=== PATIENT | female | born 1960 | race Caucasian/White ===

== ENCOUNTER 2017-08-14 17:52 | Emergency (ER) | payer MEDICARE, OTHER ==
[2017-08-14] MEDS ORDERED: RINGERS SOLUTION,LACTATED 1,000 ML IV ONE (19:08)
[2017-08-14] MEDS ORDERED: ONDANSETRON HCL INJ/PF 4 MG/2 ML SDV IV ONE (19:09)
[2017-08-14] MEDS ORDERED: HYDROMORPHONE HCL INJ/PF 2 MG/ML AMPULE IV ONE (19:09)
[2017-08-14] MEDS ORDERED: DIPHENHYDRAMINE HCL 50 MG/ML VIAL IV ONE (19:10)
[2017-08-14] MEDS ORDERED: HALOPERIDOL LACTATE INJ 5 MG/1 ML VIAL IV ONE ×2 (19:10→19:37)
--- NOTE | 2017-08-14 19:13 | ER Document Report ---
ED Medical Screen (RME) - General Chief Complaint: Abdominal Pain Stated Complaint: ABDOMINAL PAIN Time Seen by Provider: 08/14/17 19:08 Notes: Patient says that she suffers from cyclic vomiting syndrome, diagnosed in 2002, which usually ends up in the emergency department receiving IV fluids and medications. Her last episode was in December of this year. Patient lives in [place], [place], and is visiting here. She says that she had onset of her nausea and vomiting and abdominal pain about a couple of hours ago. She is vomited about 3 times. Has had a little bit of diarrhea as well. No fevers. Patient says that when she gets these episodes, they are treated with IV Phenergan, Dilaudid 4 mg, and IV Thorazine. I advised the family that I no longer give IV Phenergan and Thorazine is not likely nor his 4 mg of Dilaudid. I have ordered an IV with 2 mg of Dilaudid and some fluids and Zofran and Haldol as a substitute for Thorazine. TRAVEL OUTSIDE OF THE [place] IN LAST 30 DAYS: No - Related Data Allergies/Adverse Reactions: acetaminophen [From Lortab] Allergy (Verified 08/14/17 17:59) celecoxib [From Celebrex] Allergy (Verified 08/14/17 17:59) hydrocodone [From Lortab] Allergy (Verified 08/14/17 17:59) Past Medical History - Social History Chew tobacco use (# tins/day): No Frequency of alcohol use: None Drug Abuse: None Renal/ Medical History: Denies: Hx Peritoneal Dialysis Physical Exam - Vital signs Vitals: Temp Pulse Resp BP Pulse Ox 97.9 F 73 20 163/89 H 94 08/14/17 18:00 08/14/17 18:00 08/14/17 18:00 08/14/17 18:00 08/14/17 18:00 Course - Vital Signs Vital signs: Temp Pulse Resp BP Pulse Ox 97.9 F 73 20 163/89 H 94 08/14/17 18:00 08/14/17 18:00 08/14/17 18:00 08/14/17 18:00 08/14/17 18:00
[2017-08-14 20:19] LABS: ABSOLUTE EOSINOPHILS # (AUTO) 0.1 10^3/uL (0.0-0.6); ABSOLUTE LYMPHOCYTES (AUTO) 1.6 10^3/uL (0.5-4.7); ABSOLUTE MONOCYTES (AUTO) 0.5 10^3/uL (0.1-1.4); ABSOLUTE NEUT (AUTO) 5.7 10^3/uL (1.7-8.2); BASOPHILS % (AUTO) 0.4 % (0-2); EOSINOPHILS % (AUTO) 0.9 % (0-6); HEMATOCRIT 36.6 % (36.0-47.0); HGB HCT DIFFERENCE -0.6; LYMPHOCYTES % (AUTO) 20.2 % (13-45); MEAN CORPUSCULAR HEMOGLOBIN 27.3 pg (27.0-33.4); MEAN CORPUSCULAR HGB CONC 32.7 g/dL (32.0-36.0); MEAN CORPUSCULAR VOLUME 84 fl (80-97); MONOCYTES % (AUTO) 6.1 % (3-13); RED BLOOD COUNT 4.38 10^6/uL (3.72-5.28); SEGMENTED NEUTROPHILS % (AUTO) 72.4 % (42-78); WHITE BLOOD COUNT 7.9 10^3/uL (4.0-10.5)
[2017-08-14 20:38] LABS: ALANINE AMINOTRANSFERASE 29 U/L (9-52); ALBUMIN 4.1 g/dL (3.5-5.0); ALKALINE PHOSPHATASE 80 U/L (38-126); ANION GAP 11 (5-19); ASPARTATE AMINO TRANSFERASE 31 U/L (14-36); BILIRUBIN,DIRECT 0.3 mg/dL (0.0-0.4); BILIRUBIN,TOTAL 0.4 mg/dL (0.2-1.3); BLOOD UREA NITROGEN 8 mg/dL (7-20); CARBON DIOXIDE 30 mmol/L (22-30); CHLORIDE 100 mmol/L (98-107); CREATININE RESULT 1.24 mg/dL (0.52-1.25); GLUCOSE 122 mg/dL (75-110); POTASSIUM 4.1 mmol/L (3.6-5.0); SODIUM 140.5 mmol/L (137-145); TOTAL PROTEIN 6.5 g/dL (6.3-8.2)
[2017-08-14] MEDS ORDERED: METOCLOPRAMIDE HCL INJ/PF 10 MG/2 ML SDV IV ONE (20:52)
[2017-08-14] MEDS ORDERED: PROMETHAZINE HCL INJ 25 MG/1 ML VIAL IV ONE (21:13)
[2017-08-14] MEDS ORDERED: PROMETHAZINE HCL INJ 25 MG/1 ML VIAL ONE (21:13)
--- NOTE | 2017-08-14 21:23 | ER Document Report ---
ED General - General Chief Complaint: Abdominal Pain Stated Complaint: ABDOMINAL PAIN Time Seen by Provider: 08/14/17 19:08 Mode of Arrival: Ambulatory Information source: Patient Notes: 57 yr old female presents with complaints of cyclic vomiting , abd pain. Pt denies any fevers or chills. states she has vomited a few times. pt has no vomited in the ED . Pt is from [place], has not had a flair up since december. TRAVEL OUTSIDE OF THE [place] IN LAST 30 DAYS: No - HPI Onset: Just prior to arrival Onset/Duration: Sudden Quality of pain: Cramping Severity: Mild Pain Level: 1 Associated symptoms: Nausea, Vomiting Exacerbated by: Denies Relieved by: Other - thorazine and dilaudid Similar symptoms previously: Yes Recently seen / treated by doctor: Yes - Related Data Allergies/Adverse Reactions: acetaminophen [From Lortab] Allergy (Verified 08/14/17 17:59) celecoxib [From Celebrex] Allergy (Verified 08/14/17 17:59) hydrocodone [From Lortab] Allergy (Verified 08/14/17 17:59) Past Medical History - Social History Smoking Status: Never Smoker Cigarette use (# per day): No Chew tobacco use (# tins/day): No Smoking Education Provided: No Frequency of alcohol use: None Drug Abuse: None Family History: Reviewed & Not Pertinent Patient has suicidal ideation: No Patient has homicidal ideation: No Renal/ Medical History: Denies: Hx Peritoneal Dialysis Review of Systems - Review of Systems Notes: REVIEW OF SYSTEMS: CONSTITUTIONAL : Denies fever, chills, or sweats. Denies recent illness. EENT: Denies eye, ear, throat, or mouth pain or symptoms. Denies nasal or sinus congestion or discharge. Denies throat, tongue, or mouth swelling or difficulty swallowing. CARDIOVASCULAR: Denies chest pain. Denies palpitations or racing or irregular heart beat. Denies ankle edema. RESPIRATORY: Denies cough, cold, or chest congestion. Denies shortness of breath, difficulty breathing, or wheezing. GASTROINTESTINAL: admits to nausea vomiting GENITOURINARY: Denies difficulty urinating, painful urination, burning, frequency, blood in urine, or discharge. FEMALE GENITOURINARY: Denies vaginal bleeding, heavy or abnormal periods, irregular periods. Denies vaginal discharge or odor. MUSCULOSKELETAL: Denies back or neck pain or stiffness. Denies joint pain or swelling. SKIN: Denies rash, lesions or sores. HEMATOLOGIC : Denies easy bruising or bleeding. LYMPHATIC: Denies swollen, enlarged glands. NEUROLOGICAL: Denies confusion or altered mental status. Denies passing out or loss of consciousness. Denies dizziness or lightheadedness. Denies headache. Denies weakness or paralysis or loss of use of either side. Denies problems with gait or speech. Denies sensory loss, numbness, or tingling. Denies seizures. PSYCHIATRIC: Denies anxiety or stress. Denies depression, suicidal ideation, or homicidal ideation. ALL OTHER SYSTEMS REVIEWED AND NEGATIVE. PHYSICAL EXAMINATION: GENERAL: Well-appearing, well-nourished and in no acute distress. HEAD: Atraumatic, normocephalic. EYES: Pupils equal round and reactive to light, extraocular movements intact, conjunctiva are normal. ENT: Nares patent, oropharynx clear without exudates. Moist mucous membranes. NECK: Normal range of motion, supple without lymphadenopathy LUNGS: Breath sounds clear to auscultation bilaterally and equal. No wheezes rales or rhonchi. HEART: Regular rate and rhythm without murmurs ABDOMEN: Soft, nontender, nondistended abdomen. No guarding, no rebound. No masses appreciated. Female : deferred Musculoskeletal: Normal range of motion, no pitting or edema. No cyanosis. NEUROLOGICAL: Cranial nerves grossly intact. Normal speech, normal gait. Normal sensory, motor exams PSYCH: Normal mood, normal affect. SKIN: Warm, Dry, normal turgor, no rashes or lesions noted. Dictation was performed using [employer] voice recognition software Physical Exam - Vital signs Vitals: Temp Pulse Resp BP Pulse Ox 97.9 F 73 20 163/89 H 94 08/14/17 18:00 08/14/17 18:00 08/14/17 18:00 08/14/17 18:00 08/14/17 18:00 Course - Re-evaluation Re-evalutation: Patient's examination was quite benign, ultrasound-guided IV was placed and I had to evaluate the patient immediately upon arrival to the room, she has not been vomiting in the ED 08/14/17 21:28 I was notified the patient's jitteriness is normally controlled by Dilaudid I do not believe narcotics are appropriate in this case 08/14/17 21:37 I spoke with patient and , they explained to me that usually patient gets admitted for approximately 9 days at a time and gets Dilaudid every 4 hours , I explained to them that her labs are normal, they state that her now labs are always normal and that her imaging is always normal but she continues to vomit, patient has not actually vomited once while in the emergency department nursing staff has noted that she has spent up a few times but she has not actually vomited. I have explained that narcotics are not appropriate for this case, and that I will gladly give the Thorazine at the request and that the patient has already received Reglan and Phenergan and Haldol but that I will not be giving Dilaudid 08/14/17 22:05 Patient was given Thorazine and was given discharge instructions as well as very strict return precautions. I did explain again that her labs look normal and her vital signs are stable at this time that she would not meet admission criteria as she has not actually vomited in the emergency department After performing a Medical Screening Examination, I estimate there is LOW risk for ACUTE APPENDICITIS, BOWEL OBSTRUCTION, ACUTE CHOLECYSTITIS, PERFORATED DIVERTICULITIS, INCARCERATED HERNIA, PANCREATITIS, PELVIC INFLAMMATORY DISEASE, PERFORATED ULCER, ECTOPIC , or TUBO-OVARIAN ABSCESS, thus I consider the discharge disposition reasonable. Also, there is no evidence or peritonitis , sepsis, or toxicity. I have reevaluated this patient multiple times and no significant life threatening changes are noted. The patient and I have discussed the diagnosis and risks, and we agree with discharging home with close follow-up with the understanding that symptoms and presentations can change. We also discussed returning to the Emergency Department immediately if new or worsening symptoms occur. We have discussed the symptoms which are most concerning (e.g., bloody stool, fever, changing or worsening pain, vomiting) that necessitate immediate return. - Vital Signs Vital signs: Temp Pulse Resp BP Pulse Ox 97.9 F 73 20 163/89 H 94 08/14/17 18:00 08/14/17 18:00 08/14/17 18:00 08/14/17 18:00 08/14/17 18:00 - Laboratory Result Diagrams: 08/14/17 20:00 08/14/17 20:00 Laboratory results interpreted by me: 11/24/17 11/24/17 20:00 20:00 RDW 16.0 H Est GFR ( Amer) 54 L Est GFR (Non-Af Amer) 45 L Glucose 122 H Discharge - Discharge Clinical Impression: Cyclic vomiting syndrome Qualifiers: Vomiting Intractability: non-intractable Nausea presence: with nausea Qualified Code(s): G43.A0 - Cyclical vomiting, not intractable Abdominal pain Qualifiers: Abdominal location: generalized Qualified Code(s): R10.84 - Generalized abdominal pain Condition: Stable Disposition: HOME, SELF-CARE Instructions: Abdominal Pain ([facility]), Antispasmodics ([facility]) Additional Instructions: Follow up with your physician tomorrow for further care or return to the ED IMMEDIATELY if symptoms worsen or new concerns occur. If you cannot afford to follow up with your primary care physician a list of low cost clinics have been provided at the end of your discharge papers as well. Prescriptions: Dicyclomine HCl [Bentyl 20 mg Tablet] 20 mg PO QID #40 tablet Promethazine HCl [Phenergan 25 mg Tablet] 1 - 2 tab PO Q6H PRN #15 tablet PRN Reason:
[2017-08-14] MEDS ORDERED: CHLORPROMAZINE HCL INJ 25 MG/1 ML AMPULE IV ONE (21:36)
[2017-08-14 22:07] VITALS: BP 146/77
== END 2017-08-14 21:50 | disposition home or self-care (01) ==
LOC: ER 17:52
DX: G43.A0 Cyclical vomiting, in migraine, not intractable (principal); R10.84 Generalized abdominal pain
CPT/HCPCS: 99284; 96375; 96365; 36415; 85025; 80053; J3230; J1200; J1630; J2765; J2550; J2405; J7120